=== PATIENT | male | born 1980 | race American Indian/Alaskan Native ===

== ENCOUNTER 2017-10-12 23:27 | Emergency (ER) | payer SELFPAY ==
[2017-10-13 00:05] VITALS: BP 125/80
[2017-10-13] MEDS ORDERED: DELTASONE PO ONE (02:43)
--- NOTE | 2017-10-13 02:54 | Emergency Department Report ---
HPI - General Chief Complaint: Sore Throat Time Seen by Provider: 10/13/17 01:44 - HPI HPI: This is a 37-year-old male who presents to ED complaining of sore throat and fever for the past 3 days. Patient states some pain in this swallowing but is able to eat and drink fluids. Patient describes pain as throbbing in nature, 8 out of 10 intensity, nonradiating, localized to his throat. Patient denies cough/ nausea/vomiting/abdominal pain/shortness of breath/chest pain/headache. ED Past Medical Hx - Past Medical History Previous Medical History?: No - Surgical History Past Surgical History?: Yes Additional Surgical History: arm - Social History Smoking Status: Former Smoker Substance Use Type: Alcohol - Medications Home Medications: Home Medications Medication Instructions Recorded Confirmed Last Taken Type Ibuprofen [Motrin] 800 mg PO Q8HR PRN #30 tablet 10/13/17 Unknown Rx Nystas/Diphen/Xyl Visc/Mylanta 30 ml MM TID #200 ml 10/13/17 Unknown Rx [Magic Mouthwash] ED Review of Systems ROS: Stated complaint: SORE THROAT; FEVER Other details as noted in HPI Constitutional: denies: chills, fever Eyes: denies: eye pain, eye discharge, vision change ENT: throat pain. denies: ear pain Respiratory: denies: cough, shortness of breath, wheezing Cardiovascular: denies: chest pain, palpitations Endocrine: no symptoms reported Gastrointestinal: denies: abdominal pain, nausea, diarrhea Genitourinary: denies: urgency, dysuria Musculoskeletal: denies: back pain, joint swelling, arthralgia Skin: denies: rash, lesions Neurological: denies: headache, weakness, paresthesias Psychiatric: denies: anxiety, depression Hematological/Lymphatic: denies: easy bleeding, easy bruising Physical Exam - Physical Exam Vital Signs: Vital Signs 10/12/17 23:58 Temperature 99.6 F Pulse Rate 106 H Respiratory 12 Rate Blood Pressure 125/80 O2 Sat by Pulse 97 Oximetry Physical Exam: GENERAL: Alert and oriented x3, no apparent distress, Normal Gait, atraumatic. HEAD: Head is normocephalic and a-traumatic. EARS: symetrical, atraumatic, non tender, ear canal clear and moderate cerumen, tympanic membrance non inflamed. gross auditory nml bilaterally. NOSE: Nose symetrical, Nontender,Nares appeared normal. MOUTH:Mouth is well hydrated and without lesions. Tonsils nonerythematous, mildly swollen, Uvula midline, Tongue not elevated. Mucous membranes are moist. Posterior pharynx clear, mild left sided exudate , no lesions. Patent airways. NECK: Supple. Non edematous, No lymphadenopathy or thyromegaly. No C-spine tenderness LUNGS: Symetrical with respiration, No wheezing, no rales or crackles, CTAB. HEART: S1, S2 present, regular rate and rhythm without murmur, no rubs, no gallops. Non tender to palpation ABDOMEN: No organomegaly was noted,Positive bowel sounds, soft, and non- distended. . Nontender to palpation on all Quadrants, NO CVA tenderness. SKIN: Warm and dry, No lesions, No ulceration or induration present. ED Course Vital Signs 10/12/17 23:58 Temperature 99.6 F Pulse Rate 106 H Respiratory 12 Rate Blood Pressure 125/80 O2 Sat by Pulse 97 Oximetry ED Medical Decision Making - Medical Decision Making 26-year-old male presents with pharyngitis. ED course: Rapid strep tests ordered rapid strep test negative Patient received 1 dose 60 mg of prednisone. Vital signs stable patient is in no acute or respiratory distress. Discussed findings with patient about the positive strep. Discussed treatment in ED with patient Discussed the patient to limit sharing spoons and such. Pt to be sent home on Motrin and magic mouthwash Vital signs are stable patient is in no acute or respiratory distress Discussed with patient follow-up with primary care physician. Patient verbally states he understands and will comply to follow-up. Discussed the patient's symptoms worsen or new symptoms arise to return to ED immediately Critical care attestation.: If time is entered above; I have spent that time in minutes in the direct care of this critically ill patient, excluding procedure time. ED Disposition Clinical Impression: Pharyngitis Qualifiers: Pharyngitis/tonsillitis etiology: unspecified etiology Qualified Code(s): J02.9 - Acute pharyngitis, unspecified Disposition: - TO HOME OR SELFCARE Is pt being admited?: No Does the pt Need Aspirin: No Condition: Stable Instructions: Tonsillitis (ED), Pharyngitis (ED) Additional Instructions: Make sure to follow up with the primary care physician as discussed. Take all your medications as you've been prescribed. If you have any worsening symptoms or develop new symptoms please return to ED immediately. Prescriptions: Ibuprofen [Motrin] 800 mg PO Q8HR PRN #30 tablet PRN Reason: Pain Nystas/Diphen/Xyl Visc/Mylanta [Magic Mouthwash] 30 ml MM TID #200 ml Referrals: PRIMARY CARE, [Primary Care Provider] - 3-5 Days [facility] [Outside] - 3-5 Days [facility] [Outside] - 3-5 Days Forms: Work/School Release Form(ED) Time of Disposition: 03:05
== END 2017-10-13 03:15 | disposition home or self-care (01) ==
LOC: ED 23:27
DX: J02.9 Acute pharyngitis, unspecified (principal)
CPT/HCPCS: 87116; 87430; 99283; J7512

== ENCOUNTER 2018-03-12 04:49 | Emergency (ER) | payer SELFPAY | END 2018-03-12 05:46 | disposition left against medical advice (07) | LOC: ED 04:49 | DX: L02.92 Furuncle, unspecified (principal); Z53.21 Procedure and treatment not carried out due to patient leaving prior to being seen by health care provider ==